=== PATIENT | male | born 1965 | race Caucasian/White ===

== ENCOUNTER 2018-10-17 09:11 | Day surgery (SDC) | payer BC ==
[2018-10-13 12:29] VITALS: BMI 32.1
[2018-10-17] MEDS ORDERED: MIDAZOLAM HCL 2 MG/2 ML SINGLE DOSE VIAL ONE (13:07)
[2018-10-17] MEDS ORDERED: PROPOFOL 20 ML ONE ×2 (13:07)
[2018-10-17] MEDS ORDERED: ONDANSETRON 4 MG/2 ML VIAL ONE (13:15)
[2018-10-17] MEDS ORDERED: DEXAMETHASONE SOD PHOSPHATE 4 MG/1 ML VIAL ONE (13:15)
[2018-10-17] MEDS ORDERED: ceFAZolin SODIUM 1 GM VIAL ONE (13:15)
[2018-10-17] MEDS ORDERED: KETOROLAC TROMETHAMINE 30 MG/1 ML VIAL ONE (13:22)
[2018-10-17] MEDS ORDERED: oxyCODONE HCL 5 MG TABLET PO PRN (13:44)
[2018-10-17] MEDS ORDERED: ONDANSETRON 4 MG/2 ML VIAL IVPUSH PRN (13:44)
[2018-10-17] MEDS ORDERED: LACTATED RINGERS SOLUTION 1,000 ML IV SCH (13:45)
[2018-10-17 15:20] VITALS: TEMP 98.3
[2018-10-17] MEDS ORDERED: oxyCODONE HCL 5 MG TABLET ONE (15:31)
[2018-10-17 16:50] VITALS: BP 123/72; PULSE 68
--- NOTE | 2018-10-22 18:29 | PATH ---
Surgical Pathology Report Patient Name: NIK MARTINI [facility]. Rec. #: [id number] /Age/Gender: 1965 (Age: 53) / M Account: [id number] Location: [facility] Taken: 10/17/2018 Received: 10/17/2018 Reported: 10/22/2018 Physicians: Nik Renteria M.D. Specimen(s) Received RIGHT KNEE SHAVINGS Clinical History Internal derangement right knee Final Diagnosis RIGHT KNEE SHAVINGS: FRAGMENTS OF FIBROSYNOVIAL TISSUE WITH REACTIVE AND DEGENERATIVE CHANGE. Electronically Signed Maria Elena Stephens M.D. Gross Description Received in formalin labeled "right knee shavings" are multiple fragments of white-jung fibrocartilaginous soft tissue measuring 5 x 5 x 0.6 cm aggregate. Director Of Analytical Development sections are submitted in one cassette. MLButchZ/10/20/2018 padilla/10/20/2018
--- NOTE | 2018-10-23 10:38 | OP ---
DATE OF OPERATION: 10/17/2018 SURGEON: Nik Brizuela MD SENIOR CARE MANAGER: ALVIN Finn PREOPERATIVE DIAGNOSES: 1. Right knee medial and lateral meniscal tear. 2. Right knee cartilage tear. 3. Right knee synovitis. POSTOPERATIVE DIAGNOSES: 1. Right knee medial and lateral meniscal tear. 2. Right knee cartilage tear. 3. Right knee synovitis. PROCEDURE: 1. Right knee arthroscopy with partial meniscectomy medial and lateral meniscus, CPT code 74714. 2. Right knee arthroscopy with chondroplasty and abrasion-plasty, CPT code 08413. 3. Right knee arthroscopy with synovectomy, CPT code 2975. FINDINGS: 1. Medial meniscus body and posterior horn tear central 1/3 posterior /3. 2. Lateral meniscus posterior horn tear. 3. Synovitis patellofemoral medial and lateral notch area. 4. Central grade 2-3 cartilage medial femoral condyle tibial plateau with anterior grade 4 changes anterior central portion of lateral tibial plateau 4 cm x 4 cm. 5. Diffuse grade 1-2 cartilage injury lateral grade 2-3 changes lateral tibial plateau. 6. Diffuse grade 1-2 cartilage injury patella with grade 2-4 changes patellofemoral trochlea. PROCEDURE: Informed consent was obtained. The patient came to the operating room, where the lower extremity was prepped and draped in a sterile fashion. A tourniquet was placed on the upper thigh, but not inflated. Using standard arthroscopic technique, a lateral incision and portal was made to allow for introduction of the camera into the suprapatellar bursa. This was then taken to the medial joint line, where under direct visualization, a medial incision and portal was made. Excessive synovium noted in the medial, lateral and patellofemoral and notch area was removed by an upbiter, shaver and Bovie cautery. This was found to bring in inflammatory tissue into the joint surface, a source of pain and dysfunction. Probing of the medial and lateral meniscus found tears, as described in the findings. These were removed with the upbiter and shaver and taken back to a stable rim. Grade 2 to 3 degenerative changes were treated with a chondroplasty, removing all flaking surfaces with low-setting Bovie along the periphery to prevent further flaking. Grade 4 changes, as noted, were treated with an abrasoplasty, creating a bleeding surface at the bone/cartilage interface. Aggressive debridement with shaver/татьяна created bleeding surface. Micro fracture also done when indicated in findings. All areas of the knee were once again reexamined. The knee was then drained and a single suture was placed in all portals. A sterile dressing was placed and the patient was transferred to the recovery room without complication. The PA listed above was present and assisted at surgery. Their presence was absolutely medically necessary for the completion of the procedure. They helped hold the arthroscopy, pass instruments (and implants when indicated) and the procedure could not have been completed without their assistance. NIK BRIZUELA M.D. [id number]
== END 2018-10-17 16:30 | disposition home or self-care (01) ==
LOC: FASU 09:11
PROVIDERS: ATTEND Orthopaedic Surgery
PROC: 0SBC4ZZ Excision of Right Knee Joint, Percutaneous Endoscopic Approach (ICD-10-PCS; 2018-10-17)
PROC: 0SBC4ZZ Excision of Right Knee Joint, Percutaneous Endoscopic Approach (ICD-10-PCS; 2018-10-17)
PROC: 0SBC4ZZ Excision of Right Knee Joint, Percutaneous Endoscopic Approach (ICD-10-PCS; principal; 2018-10-17 13:24)
DX: S83.241A Other tear of medial meniscus, current injury, right knee, initial encounter (principal); S83.281A Other tear of lateral meniscus, current injury, right knee, initial encounter; S83.8X1A Sprain of other specified parts of right knee, initial encounter; M65.861 Other synovitis and tenosynovitis, right lower leg; X58.XXXA Exposure to other specified factors, initial encounter; Y93.9 Activity, unspecified; Y92.9 Unspecified place or not applicable
CPT/HCPCS: 82962; 88304-TC; 94760